=== PATIENT | male | born 1980 | race Caucasian/White ===

== ENCOUNTER 2021-04-08 20:58 | Emergency (ER) | payer OTHER ==
[2021-04-08 22:27] LABS: RED BLOOD COUNT 5.01 M/UL (4.20-5.50); WHITE BLOOD COUNT 8.9 K/UL (4.5-11.0)
[2021-04-08 22:53] LABS: BUN/CREATININE RATIO 16 (0-10)
== END 2021-04-09 00:50 | disposition home or self-care (01) ==
LOC: ER1 20:58
PROVIDERS: Physician Assistant
DX: R55 Syncope and collapse (principal); R53.83 Other fatigue; Z20.822 Contact with and (suspected) exposure to COVID-19; F17.200 Nicotine dependence, unspecified, uncomplicated
CPT/HCPCS: 0240U; 71045; 80048; 80307; 81001; 85025; 93005; 99285